=== PATIENT | female | born 1980 | race Asian ===

== ENCOUNTER 2018-09-17 12:34 | Day surgery (SDC) | payer BC ==
[~2018-09-17] VITALS: Ht 166.4 cm; Wt 58.7 kg
[2018-09-17 13:47] VITALS: Ht 166.4 cm; Wt 58.7 kg
[2018-09-17] MEDS ORDERED: LEVO50TA7 PO (13:54)
[2018-09-17] MEDS ORDERED: LIDOCAINE 4% SOLUTION 50 ML BTL ONE (14:07)
[2018-09-17] MEDS ORDERED: MIDAZOLAM 1 MG/ML 2 ML INJ ONE ×2 (14:48)
[2018-09-17] MEDS ORDERED: FENTAnyl 50 MCG/ML VIAL ONE (14:48)
[2018-09-17 15:00] VITALS: BP 113/64; PULSE 54; RESP 18
== END 2018-09-17 16:49 | disposition home or self-care (01) ==
LOC: GIL 12:34
PROVIDERS: ATTEND Internal Medicine
DX: K29.30 Chronic superficial gastritis without bleeding (principal); K20.8 Other esophagitis
CPT/HCPCS: 43239; 84703; 88305; 88312; 88313; J2250; J3010